=== PATIENT | male | born 1975 | race Caucasian/White ===

== ENCOUNTER 2017-09-07 05:33 | Emergency (ER) | payer OTHER | END 2017-09-07 08:08 | disposition home or self-care (01) | LOC: M ED 05:33 | DX: S83.92XA Sprain of unspecified site of left knee, initial encounter (principal); J20.9 Acute bronchitis, unspecified; R03.0 Elevated blood-pressure reading, without diagnosis of hypertension; X58.XXXA Exposure to other specified factors, initial encounter; Y92.099 Unspecified place in other non-institutional residence as the place of occurrence of the external cause; Y93.9 Activity, unspecified; Z87.891 Personal history of nicotine dependence; Z88.8 Allergy status to other drugs, medicaments and biological substances | CPT/HCPCS: 73564 ==

== ENCOUNTER 2019-07-15 21:23 | Emergency (ER) | payer OTHER ==
[~2019-07-15] VITALS: Ht 172.7 cm; Wt 95.5 kg
[~2019-07-15 21:23] MED LIST: MUCI1TAB16 PO; PROAAER10 INH
[2019-07-15] MEDS ORDERED: MORPHINE 10 MG/ML 1ML VIAL (J2270) IM ONE (21:45)
[2019-07-15] MEDS ORDERED: NORC1TAB7 PO (22:24)
[2019-07-15 22:54] VITALS: BP 136/87
== END 2019-07-15 23:03 | disposition home or self-care (01) ==
LOC: M ED 21:23
DX: T22.211A Burn of second degree of right forearm, initial encounter (principal); Y27.2XXA Contact with hot fluids, undetermined intent, initial encounter; T31.0 Burns involving less than 10% of body surface; Y92.010 Kitchen of single-family (private) house as the place of occurrence of the external cause; Z88.2 Allergy status to sulfonamides

== ENCOUNTER → 2019-09-08 | Outpatient (REF) | payer OTHER ==
[~2019-09-08] MED LIST changes: +NORC1TAB7 PO
== END ==
LOC: M LAB REF 13:14
PROVIDERS: ATTEND Physician Assistant
DX: R07.0 Pain in throat (principal)

== ENCOUNTER 2020-05-28 19:09 | Emergency (ER) | payer OTHER ==
[~2020-05-28] VITALS: Ht 172.7 cm; Wt 89.4 kg
[2020-05-28 21:35] VITALS: BP 141/99
== END 2020-05-28 21:48 | disposition home or self-care (01) ==
LOC: M ED 19:09
DX: S46.002A Unspecified injury of muscle(s) and tendon(s) of the rotator cuff of left shoulder, initial encounter (principal); Y02.0XXA Assault by pushing or placing victim in front of motor vehicle, initial encounter; Y92.9 Unspecified place or not applicable; Y99.9 Unspecified external cause status; M54.2 Cervicalgia

== ENCOUNTER 2022-08-26 06:49 | Emergency (ER) | payer OTHER ==
[~2022-08-26] VITALS: Ht 172.7 cm; Wt 95.6 kg
[2022-08-26 06:49] VITALS: BP 116/82
== END 2022-08-26 10:41 | disposition left against medical advice (07) ==
LOC: M ED 06:49
DX: Z53.21 Procedure and treatment not carried out due to patient leaving prior to being seen by health care provider (principal)